=== PATIENT | male | born 1950 | race Caucasian/White ===

== ENCOUNTER → 2016-09-03 | Outpatient (CLI) | payer OTHER | LOC: C.LAB 07:35 | PROVIDERS: ATTEND Nutritionist ==

== ENCOUNTER → 2017-10-04 | Outpatient (CLI) | payer BC | END | disposition home or self-care (01) | LOC: C.PATHSPEC 11:49 | PROVIDERS: ATTEND Dentist Endodontics | DX: K04.7 Periapical abscess without sinus (principal) ==